=== PATIENT | female | born 1930 | race Caucasian/White ===

== ENCOUNTER → 2017-07-11 | Outpatient (CLI) | payer OTHER | LOC: BRMIMAGING 14:38 | PROVIDERS: ATTEND Family Medicine | DX: Z12.31 Encounter for screening mammogram for malignant neoplasm of breast (principal) | CPT/HCPCS: G0202 ==

== ENCOUNTER → 2018-07-18 | Outpatient (CLI) | payer OTHER | LOC: BRMIMAGING 15:22 | PROVIDERS: ATTEND Family Medicine | DX: Z12.31 Encounter for screening mammogram for malignant neoplasm of breast (principal) ==

== ENCOUNTER 2019-04-02 15:03 | Emergency (ER) | payer OTHER ==
[2019-04-02] MEDS ORDERED: NS 1,000 ML IV ONE (15:28)
--- NOTE | 2019-04-02 15:33 | EDPHY ---
H & P Stated Complaint: L knee rep 3 wks ago, since ongoing cough Time Seen by Provider: 04/02/19 15:24 HPI/ROS: CHIEF COMPLAINT: Chest Congestion HISTORY OF PRESENT ILLNESS: The patient is an 88-year-old female who comes to the emergency department complaining of 3 days chest congestion with a nonproductive cough. No fever. No shortness of breath. No chest pain or tachycardia palpitations. She states that her symptoms began immediately after she had her left knee replaced 3 weeks ago. She was on Eliquis to until 5 days ago. She has some moderate swelling in her left knee but nothing more than would be expected. The wound is healing well. She followed up with her orthopedic clinic today who recommended she come to the ER to have her chest congestion evaluated. Severity: Moderate Modifying factors: None REVIEW OF SYSTEMS: Constitutional: denies: chills, fever, recent illness, recent injury EENTM: denies: blurred vision, double vision, nose congestion Respiratory: See HPI denies: shortness of breath Cardiac: denies: chest pain, irregular heart rate, lightheadedness, palpitations Gastrointestinal/Abdominal: denies: abdominal pain, diarrhea, nausea, vomiting, blood streaked stools Genitourinary: denies: dysuria, frequency, hematuria, pain Musculoskeletal: denies: joint pain, muscle pain Skin: denies: lesions, rash, jaundice, bruising Neurological: denies: headache, numbness, paresthesia, tingling, dizziness, weakness Hematologic/Lymphatic: denies: blood clots, easy bleeding, easy bruising Immunologic/allergic: denies: HIV/AIDS, transplant 10 systems reviewed and negative except as noted EXAM: GENERAL: Well-appearing, well-nourished and in no acute distress. HEAD: Atraumatic, normocephalic. EYES: Pupils equal round and reactive to light, extraocular movements intact, sclera anicteric, conjunctiva are normal. ENT: TMs normal, nares patent, oropharynx clear without exudates. Moist mucous membranes. NECK: Normal range of motion, supple without lymphadenopathy or JVD. LUNGS: Breath sounds clear to auscultation bilaterally and equal. No wheezes rales or rhonchi. HEART: Regular rate and rhythm without murmurs, rubs or gallops. ABDOMEN: Soft, nontender, normoactive bowel sounds. No guarding, no rebound. No masses appreciated. BACK: No CVA tenderness, no spinal tenderness, step-offs or deformities EXTREMITIES: Normal range of motion, no pitting or edema. No clubbing or cyanosis. NEUROLOGICAL: Cranial nerves II through XII grossly intact. Normal speech, normal gait. 5/5 strength, normal movement in all extremities, normal sensation , normal reflexes PSYCH: Normal mood, normal affect. SKIN: Warm, dry, normal turgor, no visible rashes or lesions. Source: Patient, Family Exam Limitations: No limitations - Medical/Surgical History Hx Asthma: No Hx Chronic Respiratory Disease: No Hx Diabetes: No Hx Cardiac Disease: No Hx Renal Disease: No Hx Cirrhosis: No Hx Alcoholism: No Hx HIV/AIDS: No Hx Splenectomy or Spleen Trauma: No Other PMH: L knee replacement, hysterectomy, tonsillectomy - Family History Significant Family History: No pertinent family hx - Social History Smoking Status: Never smoked Alcohol Use: None Drug Use: None Constitutional: Initial Vital Signs Temperature (C) 36.5 C 04/02/19 15:12 Heart Rate 82 04/02/19 15:12 Respiratory Rate 20 04/02/19 15:12 Blood Pressure 158/70 H 04/02/19 15:12 O2 Sat (%) 92 04/02/19 15:12 O2 Delivery Mode Room Air Allergies/Adverse Reactions: No Known Allergies Allergy (Verified 04/02/19 15:16) Home Medications: Medication Instructions Recorded [place] 5-325 Tablet 04/02/19 Medical Decision Making - Diagnostics EKG Interpretation: An EKG obtained and was read and documented in trace view. Please see trace view for full reading and report. Sinus rhythm, left bundle branch block with repolarization abnormality. No previous for comparison Imaging Results: Imaging Impressions Chest/Thorax CTA 04/02/19 15:29 Impression: 1. There is no CT evidence of pulmonary artery thromboembolism. 2. Cardiomegaly, without congestive heart failure. 3. Minimal peribronchial thickening, with no focal infiltrate, however there is a 10 x 13 mm noncalcified nodule in the left lower lobe, as well as a 3 mm noncalcified pulmonary nodule posterolaterally in the left upper lobe. Given the size of the more dominant nodule, a [address] reevaluation is recommended. Should this enlarge, a PET/CT scan or a percutaneous biopsy could then be considered. If not, this should be followed over time. 4. 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 The results and recommendations were discussed with SIRENA GOLDBERG MD at 17: 40, on 04/02/2019. Imaging: Discussed imaging studies w/ call center operator Radiologist ED Course/Re-evaluation: Patient's CT is reassuring. Vital signs are very stable. She is saturating in the high 90s on room air. She is well appearing. She is pleased with results and eager to go home. We discussed the nodule that she will follow up with her primary. Discussed indications for returning. Differential Diagnosis: Partial list of the Differential diagnosis considered include but were not limited to; PE, effusion, pneumonia, atelectasis and although unlikely based on the history and physical exam, I also considered dissection, acute coronary disease. I discussed these differential diagnoses and the plan with the patient as well as the usual and expected course. The patient understands that the diagnosis is provisional and that in medicine we are not always correct and that further workup is often warranted. Usual and customary warnings were given. All of the patient's questions were answered. The patient was instructed to return to the emergency department should the symptoms at all worsen or return, otherwise to followup with the physician as we discussed. - Data Points Laboratory Results: 04/02/19 04/02/19 16:04 15:42 POC Sodium 132 mEq/L L mEq/L (135-145) POC Potassium 3.5 mEq/L mEq/L (3.3-5.0) POC Chloride 93.0 mEq/L L mEq/L (97-110) POC Total CO2 28 mEq/L mEq/L (22-31) POC BUN 13 mg/dL mg/dL (7-23) POC Creatinine 0.5 mg/dL L mg/dL (0.6-1.0) POC Glucose 94 mg/dL mg/dL (70-100) POC Calcium 8.6 mg/dL mg/dL (8.5-10.4) POC Troponin I 0.01 ng/mL ng/mL (0.00-0.08) Medications Given: Discontinued Medications Sodium Chloride (Ns) 1,000 mls @ 0 mls/hr IV EDNOW ONE; Wide Open PRN Reason: Protocol Stop: 04/02/19 15:29 Last Admin: 04/02/19 15:45 Dose: 1,000 mls Point of Care Test Results: CBC CBC Collection Date 04/02/19 CBC Collection Date 04/02/19 CBC Collection Time 15:34 CBC Collection Time 15:34 WBC 9.27 WBC 9.27 RBC 3.70 RBC 3.70 HGB 11.2 HGB 11.2 HCT 34.1 HCT 34.1 PLT 426 PLT 426 Neut # 6.63 Neut # 6.63 Neut 71.6 Neut 71.6 LYMPH # 1.28 LYMPH # 1.28 LYMPH 13.8 LYMPH 13.8 MCV 92.2 MCV 92.2 Chemistry 04/02/19 04/02/19 16:04 15:42 POC Sodium 132 mEq/L L mEq/L (135-145) POC Potassium 3.5 mEq/L mEq/L (3.3-5.0) POC Chloride 93.0 mEq/L L mEq/L (97-110) POC Total CO2 28 mEq/L mEq/L (22-31) POC BUN 13 mg/dL mg/dL (7-23) POC Creatinine 0.5 mg/dL L mg/dL (0.6-1.0) POC Glucose 94 mg/dL mg/dL (70-100) POC Calcium 8.6 mg/dL mg/dL (8.5-10.4) POC Troponin I 0.01 ng/mL ng/mL (0.00-0.08) D-Dimer D-Dimer Collection Date 04/02/19 D-Dimer Collection Time 15:34 D-Dimer (ng/ml) 2420ng/ml Departure - Departure Disposition: Home, Routine, Self-Care Clinical Impression: Cough Condition: Fair Instructions: Acute Cough (ED) Additional Instructions: You do have a nodule on your left lower lobe . Radiology recommends [address] scan to evaluate for size changes. Referrals: Juliet Dawn MD [Primary Care Provider] - 5-7 days, call for appt.
[2019-04-02] MEDS ORDERED: IOPAMIDOL (ISOVUE-370) 150 ML BTL IV ONE (15:55)
--- NOTE | 2019-04-02 15:56 | CPEKG ---
Test Reason : OPEN Blood Pressure : / mmHG Vent. Rate : 070 BPM Atrial Rate : 070 BPM P-R Int : 205 ms QRS Dur : 130 ms QT Int : 453 ms P-R-T Axes : 054 -64 042 degrees QTc Int : 489 ms Sinus rhythm Left atrial enlargement Left bundle branch block Confirmed by Sirena Goldberg ([id number]) on 04/02/2019 3:55:50 PM Referred By: SIRENA GOLDBERG Confirmed By:Sirena Goldberg
[2019-04-02 17:19] VITALS: BP 160/72
== END 2019-04-02 18:03 | disposition home or self-care (01) ==
LOC: CED 15:03
DX: R05 Cough (principal); E86.9 Volume depletion, unspecified
CPT/HCPCS: 71275; 93005; 96360; 99285; Q9967; 80048-ER; 84484-ER; 85025-QW-ER; 85379-QW-ER